=== PATIENT | male | born 1995 | race Two or more races ===

== ENCOUNTER 2017-02-21 03:59 | Emergency (ER) | payer MEDICAID ==
[~2017-02-21] VITALS: Ht 172.7 cm; Wt 92.0 kg
[2017-02-21 04:11] VITALS: Ht 172.7 cm; Wt 92.0 kg
--- NOTE | 2017-02-21 04:41 | ERD ---
ER Documentation Chief Complaint Date/Time DATE: 02/21/17 TIME: 04:38 Chief Complaint CP and left facial numbness since 3pm. intermittent, sudden onset HPI 21-year-old male presents here in emergency department for complaint of left- sided chest pain numbness and tingling started this afternoon. Patient has been having it on and off since yesterday. Patient described the pain as sharp pain, 6/10 scale, not better or worse with anything. Patient was breathing fast as he felt anxious that there must be something wrong. Patient smokes marijuana and cigarettes regularly. ROS All systems reviewed and are negative except as per history of present illness. Medications Home Meds Reported Medications [none] Unknown Strength No Conflict Check 02/21/17 Allergies Allergies: Coded Allergies: No Known Allergy (Unverified , 02/21/17) PMhx/Soc Medical and Surgical Hx: pt denies Medical Hx, pt denies Surgical Hx History of Surgery: No Anesthesia Reaction: No Hx Neurological Disorder: No Hx Respiratory Disorders: Yes (asthma) Hx Cardiac Disorders: No Hx Psychiatric Problems: No Hx Miscellaneous Medical Probl: No Hx Alcohol Use: Yes (social) Hx Substance Use: Yes (marijuana) Hx Tobacco Use: Yes Smoking Status: Current every day smoker FmHx Family History: diabetes Physical Exam Vitals Vital Signs Date Time Temp Pulse Resp B/P Pulse Ox O2 Delivery O2 Flow Rate FiO2 02/21/17 04:11 97.2 100 24 134/81 100 Physical Exam GENERAL: The patient is well developed and appropriate for usual state of health, in no apparent distress. CHEST: Clear to auscultation bilaterally. There are no rales, wheezes or rhonchi. HEART: Regular rate and rhythm. No murmurs, clicks, rubs or gallops. No S3 or S4. ABDOMEN: Soft, nontender and nondistended. Good bowel sounds. No rebound or guarding. No gross peritonitis. No gross organomegaly or masses. No Philippe sign or McBurney point tenderness. BACK: No midline or flank tenderness. EXTREMITIES: Equal pulses bilaterally. There is no peripheral clubbing, cyanosis or edema. No focal swelling or erythema. Full range of motion. Grossly neurovascularly intact. NEURO: Alert and oriented. Cranial nerves 2-12 intact. Motor strength in all 4 extremities with 5/5 strength. Sensation grossly intact. Normal speech and gait. SKIN: There is no apparent rash or petechia. The skin is warm and dry. HEMATOLOGIC AND LYMPHATIC: There is no evidence of excessive bruising or lymphedema. No gross cervical, axillary, or inguinal lymphadenopathy. Results 24 hrs Current Medications Medications (Trade) Dose Ordered Sig/Braden Route PRN Reason Start Time Stop Time Status Last Admin Dose Admin Alprazolam (Xanax) 1 mg ONCE ONCE PO 02/21/17 05:00 02/21/17 05:01 DC 02/21/17 04:41 Xanax is given here in emergency department to help calm down the patient EKG was done, read by me and is normal sinus rhythm at a rate of 82, normal axis , there is no ST changes or changes in the EKG that indicates any cardiac emergencies at this time. Patient's EKG was also reviewed by Dr. Bernardo. Impression: no acute findings on EKG PROCEDURE: Chest. CLINICAL INDICATION: Chest pain. TECHNIQUE: Single frontal view of the chest was obtained. COMPARISON: None. FINDINGS: The cardiac silhouette is within normal limits. The aortic arch is unremarkable. There is no focal consolidation, vascular congestion or pleural effusion. There is no pneumothorax. IMPRESSION: No evidence for active cardiopulmonary disease. .Darius Diop MD, MD Date Time Electronically viewed and signed by .Darius Diop MD, MD on 02/21/2017 05:28 .T/ CC: KUNAL THOMAS [employer] Procedures/MDM Medical Decision Making: Patient's symptoms most likely is consistent with anxiety, possible musculoskeletal pain. Patient also a frequent smoker of marijuana and cigarettes and is trying to quit smoking may be causing the pain. There is low suspicion for cardiopulmonary emergencies at this time. Patient has low risk factors. EKG is normal, there is no changes in the EKG that indicates cardiac emergencies. Chest X-ray does not show cardiopulmonary emergencies at this time. There is low suspicion for aortic aneurysm, myocardial infarction, pneumothorax, pleural effusion, pulmonary embolism, or any other cardiopulmonary emergencies at this time. Patient was advised to see service desk specialist within 1-2 days for further evaluation of symptoms, possible Holter monitoring. Possible anxiety as a patient will be given 5 pills of Xanax to help with symptoms. Patient was advised to follow-up with primary care doctor in 1-2 days for reevaluation of symptoms. Dispostion: Home. Stable Departure Diagnosis: Primary Impression: Atypical chest pain Condition: Stable Patient Instructions: Chest Pain, Uncertain Cause KUNAL THOMAS NP Feb 21, 2017 04:41
[2017-02-21] MEDS ORDERED: ALPRAZOLAM 1 MG TAB PO ONE (05:00)
--- NOTE | 2017-02-21 05:29 | RADRPT ---
PROCEDURE: Chest. CLINICAL INDICATION: Chest pain. TECHNIQUE: Single frontal view of the chest was obtained. COMPARISON: None. FINDINGS: The cardiac silhouette is within normal limits. The aortic arch is unremarkable. There is no focal consolidation, vascular congestion or pleural effusion. There is no pneumothorax. IMPRESSION: No evidence for active cardiopulmonary disease. .Darius Diop MD, MD Date Time Electronically viewed and signed by .Darius Diop MD, on 02/21/2017 05:28 .T/
[2017-02-21] MEDS ORDERED: ALPR0.25 PO (05:35)
== END 2017-02-21 05:58 | disposition home or self-care (01) ==
LOC: FTE 03:59
DX: R07.89 Other chest pain (principal); J45.909 Unspecified asthma, uncomplicated; F17.210 Nicotine dependence, cigarettes, uncomplicated
CPT/HCPCS: 71010; 93005; Z7502; Z7610